=== PATIENT | female | born 1995 | race American Indian/Alaskan Native ===

== ENCOUNTER 2019-10-18 09:40 | Emergency (ER) | payer MEDICAID ==
[2019-10-18 09:46] VITALS: BP 118/55
[2019-10-18] MEDS ORDERED: diphenhydrAMINE 50 MG/ML VIAL IV STA (11:41)
[2019-10-18] MEDS ORDERED: SODIUM CHLORIDE 0.9% 1000 ML 1,000 ML IV ONE (11:41)
[2019-10-18] MEDS ORDERED: PYRIDOXINE 50 MG TAB PO STA (11:41)
[2019-10-18] MEDS ORDERED: METOCLOPRAMIDE 10 MG/2 ML INJ IV STA (11:41)
--- NOTE | 2019-10-18 11:50 | Emergency Department Report ---
ED N/V/D HPI - General Chief complaint: Nausea/Vomiting/Diarrhea Stated complaint: LOSS OF APPETITITE Time Seen by Provider: 10/18/19 10:30 Source: patient Mode of arrival: Wheelchair Limitations: No Limitations - History of Present Illness Initial comments: 24-year-old -[place] female 13 weeks presents emergency department complaining nausea and vomiting with occasional diarrhea that started on Sunday about 5 to 6 days ago. Symptoms were preceded by her eating some food which she thinks caused her some food poisoning does continue to linger in a waxing and waning fashion since that time. States that when she eats or drinks she gets very nauseous and sometimes vomits. She was seen her by her [facility] on yesterday and she was prescribed Zofran which she take taking 1 to 2 x 1 yesterday but states that the nausea continued so she came to emergency department today for further evaluation and treatment options. Has some diffuse aches and and also reports fatigue but reports no chest pain, no palpitations, no headache, no dizziness no hemoptysis no hematemesis no hematochezia. Reports no fever, chills, sweats MD complaint: nausea, vomiting Radiation: none Severity: mild - Related Data Previous Rx's Medication Instructions Recorded Last Taken Type Doxylamine Succinate/Vit B6 1 each PO Q6HR #20 tablet. 10/18/19 Unknown Rx [aSmm Ferguson 10-10 mg Tablet] Allergies Allergy/AdvReac Type Severity Reaction Status Date / Time No Known Allergies Allergy Unverified 10/18/19 09:45 ED Review of Systems ROS: Stated complaint: LOSS OF APPETITITE Other details as noted in HPI Comment: All other systems reviewed and negative ED Past Medical Hx - Past Medical History Previous Medical History?: No - Surgical History Past Surgical History?: Yes Additional Surgical History: tonsilectomy - Social History Smoking Status: Former Smoker Substance Use Type: None - Medications Home Medications: Home Medications Medication Instructions Recorded Confirmed Last Taken Type Doxylamine Succinate/Vit B6 1 each PO Q6HR #20 tablet. 10/18/19 Unknown Rx [[address] Dr 10-10 mg Tablet] ED Physical Exam - General Limitations: No Limitations General appearance: alert, in no apparent distress - Head Head exam: Present: atraumatic, normocephalic - Eye Eye exam: Present: normal appearance, PERRL, EOMI. Absent: scleral icterus, conjunctival injection Pupils: Present: normal accommodation - ENT ENT exam: Present: normal exam, normal orophraynx, mucous membranes moist. Absent: TM's normal bilaterally, normal external ear exam - Neck Neck exam: Present: normal inspection, full ROM. Absent: meningismus, lymphadenopathy - Respiratory Respiratory exam: Present: normal lung sounds bilaterally. Absent: respiratory distress, wheezes, rales, chest wall tenderness, accessory muscle use - Cardiovascular Cardiovascular Exam: Present: regular rate, normal rhythm. Absent: systolic murmur, diastolic murmur, rubs, gallop - GI/Abdominal GI/Abdominal exam: Present: soft, normal bowel sounds - Extremities Exam Extremities exam: Present: normal inspection - Back Exam Back exam: Present: normal inspection - Neurological Exam Neurological exam: Present: alert, oriented X3 - Psychiatric Psychiatric exam: Present: normal affect, normal mood - Skin Skin exam: Present: warm, dry, intact, normal color. Absent: rash ED Course Vital Signs 10/18/19 09:45 Temperature 97.9 F Pulse Rate 65 Respiratory 18 Rate Blood Pressure 118/55 O2 Sat by Pulse 100 Oximetry - Consultations Consultation #1: 10/18/19 14:25 Patient is resting no acute distress states that she feels feels better with no nausea or sensation for for vomiting. Still reports no headache no stomach pain no dizziness at current ED Medical Decision Making - Medical Decision Making Female presents emergency department complaining of nausea and vomiting without diarrhea. The patient is overall well-appearing and suspected to have hyperemesis gravidarum. Given the history of examination he does not appear to be an emergency cause for the symptoms such as small bowel obstruction, coronary syndrome, bowel ischemia, DKA, pancreatitis, appendicitis, acute abdomen no emergent problem. Patient was treated with Reglan, Benadryl, fluids as well as vitamin D6. After treatment patient is feeling much better tolerating p.o. fluids shows no signs of dehydration Critical care attestation.: If time is entered above; I have spent that time in minutes in the direct care of this critically ill patient, excluding procedure time. ED Disposition Clinical Impression: Hyperemesis arising during Disposition: DC-01 TO HOME OR SELFCARE Is pt being admited?: No Does the pt Need Aspirin: No Condition: Stable Instructions: Hyperemesis Gravidarum (ED) Prescriptions: Doxylamine Succinate/Vit B6 [Samm Ferguson 10-10 mg Tablet] 1 each PO Q6HR #20 tablet. Referrals: [facility] [Provider Group] - 3-5 Days [facility] [Provider Group] - 3-5 Days
== END 2019-10-18 14:38 | disposition home or self-care (01) ==
LOC: ED 09:40
DX: O21.0 Mild hyperemesis gravidarum (principal); Z3A.13 13 weeks gestation of pregnancy; O99.331 Smoking (tobacco) complicating pregnancy, first trimester
CPT/HCPCS: 96361; 96374; 96375; 99283; J1200; J2765; J7030

== ENCOUNTER 2019-11-01 10:53 | Emergency (ER) | payer MEDICAID ==
[2019-11-01 10:59] VITALS: BP 114/62
--- NOTE | 2019-11-01 11:34 | Emergency Department Report ---
ED N/V/D HPI - General Chief complaint: Nausea/Vomiting/Diarrhea Stated complaint: 15 WKS /N/V Time Seen by Provider: 11/01/19 11:03 Source: patient Mode of arrival: Wheelchair Limitations: No Limitations - History of Present Illness Initial comments: 24-year-old -[place] female 15 weeks presents emerge department complaining of a few day history of nausea with no vomiting no abdominal pain. Reports no vaginal bleeding, no vaginal discharge. Ports no fever, chills, sweats. No chest pain or palpitation. No nausea or vomiting. She reports being seen here last week for a similar symptoms requiring an IV. She was she was discharged home with a prescription but states that she has yet to fill the medication or follow-up with her [facility] as recommended. She reports no hemoptysis no hematemesis no hematochezia. She reports no headache or dizziness. Still has few episodes of vomiting sporadic primarily when she tries to eat. Prior to arrival she was able to eat a popsicle. MD complaint: nausea, vomiting -: Gradual Associated Abdominal Pain: No Radiation: none Severity: mild Quality: dull Consistency: constant Improves with: none Worsens with: none - Related Data Previous Rx's Medication Instructions Recorded Last Taken Type Doxylamine Succinate/Vit B6 1 each PO Q6HR #20 tablet. 10/18/19 Unknown Rx [Samm Ferguson 10-10 mg Tablet] Metoclopramide [Reglan] 10 mg PO TID PRN #30 tab 11/01/19 Unknown Rx Pyridoxine HCl [Vitamin B-6 100MG 100 mg PO DAILY #30 tablet 11/01/19 Unknown Rx TAB] Allergies Allergy/AdvReac Type Severity Reaction Status Date / Time No Known Allergies Allergy Unverified 10/18/19 09:45 ED Review of Systems ROS: Stated complaint: 15 WKS /N/V Other details as noted in HPI Comment: All other systems reviewed and negative ED Past Medical Hx - Past Medical History Previous Medical History?: No - Surgical History Past Surgical History?: Yes Additional Surgical History: tonsilectomy - Social History Smoking Status: Current Every Day Smoker Substance Use Type: None - Medications Home Medications: Home Medications Medication Instructions Recorded Confirmed Last Taken Type Doxylamine Succinate/Vit B6 1 each PO Q6HR #20 tablet. 10/18/19 Unknown Rx [Samm Dr 10-10 mg Tablet] Metoclopramide [Reglan] 10 mg PO TID PRN #30 tab 11/01/19 Unknown Rx Pyridoxine HCl [Vitamin B-6 100MG 100 mg PO DAILY #30 tablet 11/01/19 Unknown Rx TAB] ED Physical Exam - General Limitations: No Limitations General appearance: alert, in no apparent distress - Head Head exam: Present: atraumatic, normocephalic - Eye Eye exam: Present: normal appearance, PERRL, EOMI Pupils: Present: normal accommodation - ENT ENT exam: Present: mucous membranes moist - Neck Neck exam: Present: normal inspection, full ROM - Respiratory Respiratory exam: Present: normal lung sounds bilaterally. Absent: respiratory distress, wheezes, rales, chest wall tenderness, accessory muscle use - Cardiovascular Cardiovascular Exam: Present: regular rate, normal rhythm. Absent: systolic murmur, diastolic murmur, rubs, gallop - GI/Abdominal GI/Abdominal exam: Present: soft, normal bowel sounds - Extremities Exam Extremities exam: Present: normal inspection - Back Exam Back exam: Present: normal inspection - Neurological Exam Neurological exam: Present: alert, oriented X3 - Psychiatric Psychiatric exam: Present: normal affect, normal mood - Skin Skin exam: Present: warm, dry, intact, normal color. Absent: rash ED Course Vital Signs 11/01/19 10:58 Temperature 98.3 F Pulse Rate 71 Respiratory 20 Rate Blood Pressure 114/62 O2 Sat by Pulse 100 Oximetry ED Medical Decision Making - Medical Decision Making Female presents emergency department complaining of nausea and vomiting without diarrhea. The patient is overall well-appearing and suspected to have hyperemesis gravidarum hisstory. Given the history of examination he does not appear to be an emergency cause for the symptoms such as small bowel obstruction, coronary syndrome, bowel ischemia, DKA, pancreatitis, appendicitis, acute abdomen no emergent problem. Patient was treated with Reglan, Benadryl here to havevitamin b6. , give her a IM shot of Reglan and some Benadryl After treatment patient is feeling much better tolerating p.o. fluids shows no signs of dehydration. Currently patient is ambulatory no acute distress no active murmurs.vomiting status post consuming a popsicle and requesting more to eat and drink. Critical care attestation.: If time is entered above; I have spent that time in minutes in the direct care of this critically ill patient, excluding procedure time. ED Disposition Clinical Impression: Hyperemesis arising during Disposition: DC- TO HOME OR SELFCARE Is pt being admited?: No Does the pt Need Aspirin: No Condition: Stable Instructions: Hyperemesis Gravidarum (ED) Additional Instructions: Please be sure to follow-up with your [facility] for management of your chronic nausea symptoms and please feel your medications and be compliant with the plan as we discussed. Prescriptions: Metoclopramide [Reglan] 10 mg PO TID PRN #30 tab PRN Reason: Vomiting Pyridoxine HCl [Vitamin B-6 100MG TAB] 100 mg PO DAILY #30 tablet Referrals: [facility] [Provider Group] - 3-5 Days
[2019-11-01] MEDS ORDERED: METOCLOPRAMIDE 10 MG/2 ML INJ ONE (12:08)
[2019-11-01] MEDS ORDERED: diphenhydrAMINE 50 MG/ML VIAL ONE (12:08)
[2019-11-01] MEDS ORDERED: METOCLOPRAMIDE 10 MG/2 ML INJ IM ONE (12:12)
[2019-11-01] MEDS ORDERED: diphenhydrAMINE 50 MG/ML VIAL IM ONE (12:13)
== END 2019-11-01 12:34 | disposition home or self-care (01) ==
LOC: ED 10:53
DX: O21.0 Mild hyperemesis gravidarum (principal); F17.200 Nicotine dependence, unspecified, uncomplicated; Z90.89 Acquired absence of other organs; Z79.899 Other long term (current) drug therapy; Z3A.15 15 weeks gestation of pregnancy
CPT/HCPCS: 96372; 99282; J1200; J2765

== ENCOUNTER 2020-01-27 10:40 | Outpatient (CLI) | payer MEDICAID ==
[2020-01-27] MEDS ORDERED: LACTATED RINGERS 500 ML IV ONE (12:27)
[2020-01-27] MEDS ORDERED: ONDANSETRON 4 MG/2 ML INJ IV NR (12:49)
[2020-01-27 13:01] VITALS: BP 119/67
== END 2020-01-27 14:07 | disposition home or self-care (01) ==
LOC: TRG 10:40 → APU 10:41 → TRG 14:07
PROVIDERS: ATTEND Obstetrics & Gynecology
DX: O21.2 Late vomiting of pregnancy (principal); O99.332 Smoking (tobacco) complicating pregnancy, second trimester; F17.200 Nicotine dependence, unspecified, uncomplicated; Z3A.27 27 weeks gestation of pregnancy
CPT/HCPCS: 96365; J2405; J7120

== ENCOUNTER 2020-01-29 07:16 | Outpatient (CLI) | payer MEDICAID ==
[2020-01-29 07:44] VITALS: BP 135/75
[2020-01-29] MEDS ORDERED: LACTATED RINGERS 1,000 ML IV ONE (08:00)
== END 2020-01-29 08:44 | disposition home or self-care (01) ==
LOC: TRG 07:16 → APU 07:17 → TRG 08:44
PROVIDERS: ATTEND Obstetrics & Gynecology
DX: O21.2 Late vomiting of pregnancy (principal); Z3A.27 27 weeks gestation of pregnancy
CPT/HCPCS: 59025

== ENCOUNTER 2020-03-08 08:28 | Outpatient (CLI) | payer MEDICAID ==
[2020-03-08] MEDS ORDERED: LACTATED RINGERS 2,000 ML ONE (09:36)
[2020-03-08] MEDS ORDERED: LACTATED RINGERS 1000 ML IV SOLN IV SCH (10:00)
[2020-03-08] MEDS ORDERED: ONDANSETRON 4 MG/2 ML INJ IV SCH (10:00)
[2020-03-08 10:42] LABS: Blood Urea Nitrogen 10 mg/dL (7-17); Calcium 9.6 mg/dL (8.4-10.2); Hemolysis Index 9
[2020-03-08 10:56] LABS: BUN/Creatinine Ratio 20
[2020-03-08 11:44] LABS: Bilirubin,Urine NEG (Negative); Blood,Urine NEG (Negative); Color,Urine Yellow (Yellow); Mucus,Urine 3+ /HPF; Urobilinogen,Urine < 2.0 mg/dL (<2.0)
== END 2020-03-08 11:45 | disposition home or self-care (01) ==
LOC: TRG 08:28 → APU 08:29 → TRG 11:45
PROVIDERS: ATTEND Obstetrics & Gynecology
DX: O21.2 Late vomiting of pregnancy (principal); O47.03 False labor before 37 completed weeks of gestation, third trimester; O99.333 Smoking (tobacco) complicating pregnancy, third trimester; F17.200 Nicotine dependence, unspecified, uncomplicated; Z3A.33 33 weeks gestation of pregnancy
CPT/HCPCS: 36415; 59025; 80048; 81001; 96361; 96374; J2405; J7120; 96360

== ENCOUNTER 2021-06-16 15:31 | Emergency (ER) | payer MEDICAID | END 2021-06-16 16:00 | disposition left against medical advice (07) | LOC: ED 15:31 | DX: R06.02 Shortness of breath (principal); Z53.21 Procedure and treatment not carried out due to patient leaving prior to being seen by health care provider ==